=== PATIENT | female | born 1940 | race Caucasian/White ===

== ENCOUNTER → 2019-07-19 10:57 | Outpatient (CLI) | payer MEDICARE, SELFPAY ==
[2019-07-20 15:19] LABS: COVID19 Sendout NOT DETECTED (Not Detect)
== END ==
PROVIDERS: Visit Provider Registered Nurse
DX: Z01.812 Encounter for preprocedural laboratory examination (principal)
CPT/HCPCS: 87635

== ENCOUNTER 2019-07-22 09:53 | Observation (INO) | payer MEDICARE, SELFPAY ==
[2019-07-18 09:16] VITALS: BMI 28.0
[2019-07-21] VITALS (17 sets, daily range): BP systolic 110–148; BP diastolic 47–90; PULSE 52–70; RESP 10–30; TEMP 36–36.6; O2SAT 96–100; BMI 25.8
--- NOTE | 2019-07-21 06:00 | DI.RAD.S_ITS ---
PROCEDURE: XR PELVIS 1-2V INDICATIONS: post op Right JEREMÍAS TECHNIQUE: 1 view of the lower pelvis acquired. COMPARISON: None. FINDINGS: Bones: Patient is status post right hip arthroplasty, with hardware components in expected positions. The hip joint appears congruent. The visualized bony structures appear intact. Soft tissues: Overlying postoperative changes are noted. No suspicious soft tissue densities. IMPRESSION: Normal alignment after right total hip arthroplasty. Dictated by: Cody Booker M.D. on 07/21/2019 at 10:12 Approved by: Cody Booker M.D. on 07/21/2019 at 10:12
[2019-07-21] MEDS: LACTATED RINGERS 1,000 ML 42 ML IV (07:04)
[2019-07-21] MEDS: CELECOXIB 200 MG CAPSULE PO (07:04)
[2019-07-21] MEDS: PREGABALIN 75 MG CAPSULE PO (07:05)
[2019-07-21] MEDS: ACETAMINOPHEN 325 MG TABLET 975 MG PO (07:05)
[2019-07-21] MEDS: CEFAZOLIN 1 GM/50 ML FROZ.PIGGY IV (07:40)
--- NOTE | 2019-07-21 07:45 | PM.PREOP ---
Pre-operative Note COVID-19 COVID-19 status: Negative Result date/Date tested (Pos, Neg/Pending): 07/19/19 Interval Note History & Physical reviewed/Exam performed by Physician: Yes Changes to H&P: No
[2019-07-21] MEDS: TRANEXAMIC ACID 1,000 MG VIAL 2000 MG INJ ×2 (08:10→08:55)
--- NOTE | 2019-07-21 08:25 | SUR.OPER ---
Lateral on padded OR bed. Gel axillary roll. Arms secured on padded armboard with pillow supporting top arm. Padded hip positioner braces x4 - anterior and posterior chest and pelvis. Additional gel pad used anterior pelvis. Gel pad under bottom leg from knee to foot and secured with tape over sheet.
[2019-07-21] MEDS: KETOROLAC 30 MG/ML VIAL IV (08:30)
[2019-07-21] MEDS: MORPHINE 4 MG/ML INJ INJ (08:30)
[2019-07-21] MEDS: ROPIVACAINE 0.5% PF 5 MG/ML 20ML VIAL 60 ML INJ (08:30)
--- NOTE | 2019-07-21 09:31 | P.OP_ITS ---
Operative Date/Time/Diagnoses Date of procedure: 07/21/19 Time of procedure: 09:31 Pre-op diagnosis: Right hip degenerative joint disease Post-op diagnosis: same Procedure & Clinicians Procedure: Right total hip arthroplasty (CPT code 11951 with dental assistant instructor) Same procedure as scheduled: Yes Indications: Patient is an 79-year-old female with severe right hip DJD. The patient has pain with activities and at rest, limited ambulation and activity tolerance, difficulties with ADLs, and failure of conservative treatment. We have discussed the nature of condition, treatment options, risks and benefits, and patient elects to proceed with total hip arthroplasty and gives informed consent. Surgeon: Дмитрий Hsu Undercollar Baster: Lucia Wen Anesthesia Type: General and Spinal Operative Notes Closure Type: primary Specimen(s): none sent Prosthetic devices, grafts, tissues, transplants, or devices: Acetabulum: Cueva and Nephew R3 acetabular component size 54 mm Femoral component: Cueva [employer] Nephew Anthology stem size 7 with standard offset Femoral head: 36 mm + 0 cobalt chrome Estimated Blood Loss (mL): 100 Blood products transfused: none Procedure in detail: After satisfaction induction of anesthetic, and administration of IV antibiotics, the patient was positioned in the lateral decubitus position with all bony prominences well padded and pelvic position secured using a hip inspector integrated circuits positioning device. Right hip and lower extremity prepped and draped in the usual sterile fashion, 1st dose of intravenous tranexamic acid was administered, then a longitudinal incision was created centered over the greater trochanter and carried sharply through the skin and subcutaneous tissues down to the fascia hussein which was divided longitudinally and retracted with a Charnley retractor. External rotators visualize, cut, tagged, and retracted posteriorly, then the capsule was cut in a T-type fashion with the corners tagged and retracted. Hip was dislocated and femoral neck cut made according to preoperative templating. Acetabular retractors then placed, and the acetabular labrum and osteophytes were excised. The acetabulum was then sequentially reamed to 53 mm with an excellent circumferential ream and fit with the trial. The trial component was removed and a permanent size 54 mm Cueva and Nephew R3 acetabular component was selected, positioned, and impacted with satisfactory position and fixation achieved. Permanent liner was then inserted with the elevated lip directed posteriorly. Soft tissue then removed off the lateral femoral neck in the lateral neck was entered using a box osteotome. T- handled reamers placed down the canal followed by sequential broaching to 7 with the final broach left in place for trial reduction which demonstrated excellent leg length, range of motion, and stability characteristics with a 36 mm +0 trial ball. The trial and broach were removed, and a permanent size 7 Cueva and Nephew Anthology stem was selected and inserted with excellent position and fixation achieved. Another trial reduction yielded the above characteristics so the trial ball was exchanged for a permanent 36 mm +0 cobalt chrome ball. The hip was irrigated and reduced and excellent leg length range of motion and stability characteristics were achieved and maintained. Periarticular tissues were infiltrated with ropivacaine, morphine, and Toradol. The hip was copiously irrigated, and the capsule repaired with #2 Ethibond, and the piriformis was repaired back to the greater trochanter with the same. Fascia hussein closed with interrupted #1 Ethibond sutures, and the subcutaneous tissues were closed in 2 layers of 0 Vicryl and 2 0 Vicryl. Skin was closed with elisa and sterile dressings applied. Second dose of tranexamic acid was administered intravenously, and the anesthetic was terminated. Complications: none Post-operative Condition: stable Disposition: PACU Plan for aftercare: Patient will be admitted to the acute care early, and anticipate discharge on postop day 1 with follow-up in office in 10-14 days. Outpatient physical therapy will be arranged and patient will continue to observe posterior hip precautions. Patient will continue use of postoperative Lovenox for 10 days postop.
--- NOTE | 2019-07-21 10:05 | SUR.PHASEI ---
Patient denies nausea/pain. Spinal at umbilicus. Tolerating po.
[2019-07-21] MEDS: LACTATED RINGERS 1,000 ML 125 ML IV (11:28)
--- NOTE | 2019-07-21 12:39 | PC.NURSE ---
Checked on patient after approx 12:15, she is sitting upright in bed starting to eat her lunch. She reports that just after 12 noon she started having sudden flashing in her right eye like little lights in a [place] which now continues. Upon evaluation she has no other neurological symptoms. BG 127. Reported findings immediately to Dr. Hsu (in surgery) and whether to activate stroke protocol. He states not needed at this time, likely retinal, but requests hospitalist consult. Dr. Rodriguez notified and updated. Will continue to monitor closely.
--- NOTE | 2019-07-21 13:10 | CM.DANOTE ---
Addendum entered by Barb iL LPN 07/21/19 13:27: Consultation: currently in process by hospitalist Dr. Rodriguez. COSME Franklin reports pt having circular flashing in R eye: labs and a CT are in process. Original Note: Discharge Planning/Care Management DCP: assessment: case received, EMR reviewed and went to room now to check in with pt. She had just arrived from PACU and said she was feeling very comfortable with the warmed blanket. Introduced self and role. PT was admitted early this morning for a scheduled R JEREMÍAS/posterior approach. Surgeon: Dr. Hsu Payer: Medicare and AARP Admission status: SDC: confirmed by UR RN Alla PT will be seeing pt later today. Pt confirms that she does plan to d/c to home when ok'd by the surgical team. Her Chapin will be helping her at home as she recovers. OUTPT PT is planned, per Dr. Hsu. P: check in again tomorrow after pt has worked with therapy and follow prn for any needs around d/c that may arise. (conversation today was quite brief as pt has so recently come out of surgery) CM Discharge Assessment Start: 07/21/19 13:09 Freq: Status: Active Protocol: Document 07/21/19 13:09 ITV (Rec: 07/21/19 13:10 ITV [id number]) Discharge Planning Assessment Advance Directives? Yes Advance Directives on File No History Provided By Patient,Medical Record Prior Living Arrangements Apartment/Condo Household Members spouse Is patient alert and oriented? Yes Discharge Plan Home Whiteboard Updated in Patient Room with Yes name and ext. # of Field Operations Manager Pre-Anesthesia Assessment Start: 07/18/19 09:16 Freq: Status: Active Protocol: Document 07/18/19 09:16 CAB (Rec: 07/18/19 09:41 CAB [id number]) Pre-Anesthesia Assessment PAC Comment COVID virus infection 05/06/19, did not require hospitalization Patient Information Reviewed Via Chart Review,Phone Assessment Assessment Completed With Patient Comment COVID testing scheduled for 07/19/19-No other labs/EKG identified Primary Care Provider Robert Antony Seen Specialist in Last 12 Months Yes Specialist Seen Orthopedist Primary Language South African Inspector Finishing Required No Height 169.55 cm Weight 80.739 kg Body Mass Index (BMI) 28.0 Hearing Ability Normal Visual Impairment No Limitations Visual Assist None Dentition Type Teeth, Natural Present Barriers to Learning None Other Aids No Hx Anesthesia Reactions No: It takes a little more to put me out Hx Family Anesthesia Reaction No Hx Malignant Hyperthermia No Hx Blood Transfusions No Anesthesia Review Requested No alcohol intake current alcohol intake frequency a few times a month Smoking Status Never smoker Substance Use Type does not use Pain Present Pain Reported Musculoskeletal Symptoms Abnormal Gait,Difficulty Walking,Joint Pain,Neck Pain, Numbness History of Falling (Recent or History of Yes ) Patient is completely paralyzed or No completely immobile Prosthesis or Orthotic Device Cane Mental Status Oriented to own ability Is patient on oxygen? No Does patient have CANTU/SOB No Hx Sleep Apnea No Currently Taking a Beta Sarmad Yes: Metoprolol Can You Climb a Flight of Stairs Without Yes SOB Hx Chest Pain No Hx SOB No Hx Syncope or Dizziness Yes: Occasional dizziness with sudden positional changes Anti-Coagulant Therapy No Has a Patient Financial Counselor No Cardiac Testing No Hx Pacemaker/ICD No Pacemaker Rep Required? No Cardiac Clearance Received Not Applicable Diet Type At Home Regular,Diabetic dysphagia No Gastrointestinal Symptoms Constipation Comment Hx Longo's esophagus Urinary Catheter Present No Hx Urinary Self Catheterization No Diabetes Yes: No medication, checks blood sugars once a month HgbA1C 5.9 Date 03/17/19 Comment A1c report per pt Patient No Lactating No Hx Drug Resistant Organism No Presence of External or Internal Medical Yes: Bilateral eye lens Devices Have you had any close contact with Yes: Pt had COVID-19 05/06/19 someone diagnosed with COVID-19? Are you experiencing any of these No symptoms symptoms? Evaluation/Screening for possible COVID- Yes 19 infection completed? Comment Pt did not require hospitalization, also had COVID-19 Marital Status Lives With spouse Prior Living Arrangements Apartment/Condo Number of Floors (Floors) One Floor Support System Spouse Does the Patient Have Assistance After Yes Surgery Patient Discharge Plan Description Return Home Feels Safe in Current Environment Yes Been Physically Hurt or Threatened By a No Person in Current Environment Do you have thoughts of harming yourself None or others? Are you currently considering suicide? No Do you have a plan to hurt yourself or No Plan others? Do You Have Any Spiritual Beliefs That No May Affect Your HC Choices? Do You Have Any Cultural Practices That No May Affect Your HC Choices? Comment Hindu Who Can We Speak to About Patient's Care Family, friends Identifying Code for Release of Patient Declines to issue Information Health Care Proxy/Next of Kin Chapin () Health Care Proxy Emergency Contact Name Homero (son), Arben (son) Emergency Contact Phone Number Homero: [phone] Advance Directives? Yes Advance Directives on File No Power of Plant Nursery Worker Yes Power of Plant Nursery Worker Name Chapin () Power of Plant Nursery Worker PAC Instructions Durable medical equipment, Medications to take/avoid, Nasal antibiotic,No ETOH/ petroleum product on skin DOS, NPO,Post-op transportation, Sturdy shoes/comfortable clothes,Do not bring valuables and remove jewelry
--- NOTE | 2019-07-21 13:15 | PC.NURSE ---
Per Dr. Rodriguez patient to have STAT labs drawn and then can go to CT after resulted.
[2019-07-21 13:37] LABS: BUN Creatinine Ratio 30.3 (6-22); Blood Urea Nitrogen 23 mg/dL (7-17); Carbon Dioxide 28 mmol/L (22-32); Chloride 101 mmol/L (98-107); Estimated Glomerular Filt Rate > 60.0 mL/min (>60); Glucose 184 mg/dL (80-110); HEMOLYSIS < 15 (0-50); Potassium 4.1 mmol/L (3.4-5.1); Sodium 138 mmol/L (137-145)
--- NOTE | 2019-07-21 13:38 | DI.CT.S_ITS ---
PROCEDURE: CT ANGIO HEAD INDICATIONS: confussion post op hip surgery with right eye vision problems TECHNIQUE: Precontrast 4.5 mm thick angled axial sections acquired from the foramen magnum to the vertex. After the administration of intravenous contrast, 1 mm thick sections acquired through the [place] of [place]. Postcontrast 4.5 mm thick sections then re-acquired from the foramen magnum to the vertex. 10 mm thick oivqkzs-ldxwjwotu-yfitblocvd (MIP) reformats were acquired of the central intracranial vasculature. For radiation dose reduction, the following was used: automated exposure control, adjustment of mA and/or kV according to patient size. COMPARISON: None. FINDINGS: Image quality: Excellent. Anterior circulation: Intracranial internal carotid arteries are normal in size and flow. The flow within the paired anterior cerebral arteries is normal and symmetric. The flow within the middle cerebral arteries is normal and symmetric. The anterior communicating artery is seen. No aneurysms are seen. Posterior circulation: Visualized portions of the vertebral arteries demonstrate normal caliber, and join to form a normal appearing basilar artery. Flow within the posterior cerebral arteries is normal and symmetric. No aneurysms are seen. CSF spaces: Ventricles are normal in size and shape. Basal cisterns are patent. No extra-axial fluid collections. Brain: No midline shift. No intracranial bleeds or masses. Ritter-white matter interface appears intact. Skull and face: Calvarium and facial bones appear intact, without suspicious lesions. Sinuses: Visualized sinuses and mastoids are clear. IMPRESSION: Normal for age, source of current symptoms is not seen. Dictated by: Cody Booker M.D. on 07/21/2019 at 14:43 Approved by: Cody Booker M.D. on 07/21/2019 at 14:45
[2019-07-21] MEDS: ACETAMINOPHEN 325 MG TABLET 650 MG PO ×2 (14:45→21:15)
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
--- NOTE | 2019-07-21 15:06 | DI.MRI.S_ITS ---
PROCEDURE: MR HEAD/BRAIN WO CON INDICATIONS: post op confusion after hip surgery, right eye vision problems TECHNIQUE: Noncontrast axial T1 spin echo, axial T2 fast spin echo, sagittal and axial FLAIR, coronal T2 fast spin echo, axial gradient echo, axial diffusion and ADC through the brain. COMPARISON: None. FINDINGS: Image quality: Excellent. CSF Spaces: Basal cisterns are patent. No extra-axial fluid collections. Ventricles are normal in size and shape. Brain: No intracranial masses or hemorrhage. Ritter/white matter interface is normal. Brainstem appears normal. Diffusion-weighted images demonstrate no acute ischemic insult. No chronic ischemic insults. Normal intravascular flow voids are present. Skull and face: Calvarium has normal marrow signal. Orbits appear normal. Sinuses: Sinuses and mastoids are clear except for mild chronic appearing mucosal thickening without air-fluid level at the right maxillary sinus. IMPRESSION: Source of confusion and reported right eye vision alteration is not seen. No stroke or mass is found, no intracranial hemorrhage is identified. No orbital abnormalities seen. Incidental note is made of a slight degree of mucosal thickening at the right maxillary sinus without air-fluid level indicating minimal chronic sinusitis in that area from the past. Dictated by: Cody Booker M.D. on 07/21/2019 at 17:04 Approved by: Cody Booker M.D. on 07/21/2019 at 17:05
--- NOTE | 2019-07-21 17:04 | PM.CN ---
History of Present Illness Consult details Date Patient Seen: 07/21/19 Chief complaint: [id number] Reason for consult: Visual changes Narrative: The patient is a 79-year-old female who is status post right ORIF who I am asked to see for abrupt onset of flashing lights out of the right visual field. The patient has a history of type 2 diabetes, hypertension, hyperlipidemia, hypothyroidism, osteoarthritis who reports having a history of a detached left retina. Her symptoms during that episode was different from this occasion. She was sitting in in bed when she noted around noon flashing lights out of the right visual field. She noted that the mid visual field did not have the flashing lights. She had no loss of vision. It no slurred speech. She had no facial droop. She reports some tingling and weakness in her lower extremities which she relates to her recent surgery. Patient has no prior history of stroke. I was asked by Dr. Hsu to consult on this patient for further evaluation. Meds Home Medications and Allergies Home Medications Medication Instructions Recorded Confirmed Type duloxetine 60 mg PO DAILY 04/27/19 07/21/19 History levothyroxine 88 mcg PO DAILY 04/27/19 07/21/19 History metoprolol succinate 50 mg PO BID 04/27/19 07/21/19 History pantoprazole 40 mg PO DAILY 04/27/19 07/21/19 History simvastatin 40 mg PO BEDTIME 04/27/19 07/21/19 History triamterene-hydrochlorothiazid 1 tab PO QAM 04/27/19 07/21/19 History zolpidem 5 mg PO BEDTIME PRN 04/27/19 07/21/19 History Allergies Allergy/AdvReac Type Severity Reaction Status Date / Time lisinopril AdvReac Intermediate Cough Verified 07/21/19 06:47 Review of Systems Review of Systems ROS: Yes All systems reviewed with the patient and are negative except as otherwise documented Exam Vital Signs (past 8 hours): - 07/21/19 09:18 07/21/19 09:23 07/21/19 09:28 Temperature 97.9 F Pulse Rate 56 L 55 L 56 L Respiratory Rate 30 H 10 L 11 L Blood Pressure 116/52 L 116/57 L 117/56 L Pulse Oximetry 100 100 99 07/21/19 09:33 07/21/19 09:48 07/21/19 10:03 Temperature 97.3 F L 97.5 F L Pulse Rate 55 L 54 L 52 L Respiratory Rate 15 13 12 Blood Pressure 125/57 L 111/50 L 118/47 L Pulse Oximetry 99 99 100 07/21/19 10:30 07/21/19 11:00 07/21/19 11:22 Temperature 96.8 F L 97.3 F L Pulse Rate 54 L 56 L Respiratory Rate 14 14 Blood Pressure 120/57 L 133/66 Pulse Oximetry 100 99 100 07/21/19 11:30 07/21/19 12:30 07/21/19 13:31 Temperature 97.2 F L 97.3 F L 97.8 F Pulse Rate 53 L 63 63 Respiratory Rate 14 16 16 Blood Pressure 122/90 140/73 125/53 L Pulse Oximetry 98 99 98 07/21/19 15:43 Temperature 96.9 F L Pulse Rate 60 Respiratory Rate 18 Blood Pressure 144/69 H Pulse Oximetry 96 Oxygen Delivery Method Room Air Oxygen Flow Rate 0 Narrative Exam Narrative: Pleasant female resting comfortably in no obvious distress HEENT: Normocephalic atraumatic, extraocular muscles are intact, visual gibbs are intact to confrontation. No facial asymmetry, speech is fluent, Lungs: Clear to auscultation Cardiac exam: Regular rate and rhythm normal S1-S2 with a 2/6 systolic ejection murmur Abdomen: Soft nontender nondistended Extremities: Right leg with dressing in place left leg no edema Neuro exam: Cranial nerves 2-12 are intact, strength is symmetric and equal in the upper extremities, she is unable to lift the right lower extremity but able to lift the left lower extremity, sensation grossly intact NIH score of 0 Objective Labs Result Diagrams: 07/21/19 13:14 Labs: Laboratory Results - last 24 hr 07/21/19 13:14 Sodium 138 Potassium 4.1 Chloride 101 Carbon Dioxide 28 BUN 23 H Creatinine 0.76 Estimated GFR > 60.0 BUN/Creatinine Ratio 30.3 H Glucose 184 H Calcium 10.0 Assessment & Plan Assessment & Plan narrative: Impression 1. 79-year-old female status post ORIF who developed abrupt onset of visual changes in the right visual field -NIH SS stroke score is 0 -CT angio is negative -head MRI pending -visual changes resolved after to our -suspect this may reflect ophthalmologic condition versus a neuro condition. -patient to follow-up with her director of rehabilitation and wellness as an outpatient 2. Status post ORIF -postsurgical management per Ortho 3. Hypertension -continue metoprolol 4. Hyperlipidemia -continue statin 5. Hypothyroid -continue L-thyroxine Will follow-up head MRI to rule out acute ischemic change. If MRI is negative would recommend outpatient ophthalmological evaluation. Thank you very much for this consultation
[2019-07-21] MEDS: CEFAZOLIN 2 GM/100 ML FROZ.PIGGY IV ×2 (17:29→23:25)
[2019-07-21] MEDS: LORazepam 2 MG/ML INJ 1 MG IV (17:30)
[2019-07-21] MEDS: hydrOXYzine pamoate 25 MG CAPSULE PO (21:14)
[2019-07-21] MEDS: METOPROLOL ER 50 MG TABLET PO (21:14)
[2019-07-21] MEDS: DOCUSATE 100 MG CAPSULE PO (21:14)
[2019-07-21] MEDS: SIMVASTATIN 40 MG TABLET PO (21:14)
[2019-07-21] MEDS: ASPIRIN EC 81 MG TABLET PO (21:15)
[2019-07-21] MEDS: diphenhydrAMINE 50 MG/ML VIAL 25 MG IV (23:19)
[2019-07-21] MEDS: ZOLPIDEM 5 MG TABLET PO (23:25)
--- NOTE | 2019-07-22 00:07 | PC.NURSE ---
Addendum entered by Mandi Hawk R.N. 07/22/19 05:39: States she slept well. Denies pain except for a few twinges. States she has some numbness around right knee area but is now able to lift leg further off bed. Declines repositioning but demonstrates ability to shift buttocks in the bed. Original Note: Patient is alert and oriented. Breath sounds CTA with RA sat of 98%. HRR. Denies nausea. BT hypoactive but states she passed some flatus earlier. Voiding without dysuria, frequency or urgency. Needing assist to reposition in bed. Did not do well with transfers out of bed on previous shift so will use bedpan during the night. Bulky dressing to right lateral hip is CDI. CMS is intact bilaterally but is unable to lift right leg off bed more than a couple inches. Wearing bilateral calf SCD's. States pain is 2/10 and achy but tolerable and declines offer of pain medication. Was complaining of itching at shift change and was medicated with Benadryl with resolution of symptoms. Requested/medicated with Ambien for sleep. Fall risk score is moderate; bed alarm is activated.
[2019-07-22 03:01] VITALS: BP 102/49; PULSE 61; RESP 16; TEMP 36.4; O2SAT 95
[2019-07-22] MEDS: PANTOPRAZOLE 40 MG TABLET PO (05:35)
[2019-07-22 06:22] LABS: Hematocrit 29.3 % (36-46); Hemoglobin 10.1 g/dL (12.0-16.0)
[2019-07-22 07:45] VITALS: BP 89/43
[2019-07-22 07:47] VITALS: BP 100/48; PULSE 57; RESP 14; TEMP 36.4; O2SAT 96
--- NOTE | 2019-07-22 07:49 | P.PN_ITS ---
Subjective Subjective Date Patient Seen: 07/22/19 Time Patient Seen: 10:57 Interval history: She is seen today to follow up her hypertension, hyperlipidemia, hypothyroidism and postop vision symptoms with possible TIA. The brain MRI is read as: IMPRESSION: Source of confusion and reported right eye vision alteration is not seen. No stroke or mass is found, no intracranial hemorrhage is identified. No orbital abnormalities seen. Incidental note is made of a slight degree of mucosal thickening at the right maxillary sinus without air-fluid level indicating minimal chronic sinusitis in that area from the past. Her symptoms have resolved and she is discharging today per Dr. Hsu. She has plans to follow this up with her retinal specialist soon. Her glucose was 184 yesterday and is 107 this morning. She has a history of diet-controlled diabetes with no recent A1c's available. The hemoglobin is 10.1. She is afebrile and vital signs are stable. Exam Vital Signs (past 8 hours): - 07/22/19 03:01 Temperature 97.5 F L Pulse Rate 61 Respiratory Rate 16 Blood Pressure 102/49 L Pulse Oximetry 95 Oxygen Delivery Method Room Air Oxygen Flow Rate 0 Narrative Exam Narrative: She is alert and oriented x3, in no apparent distress. Pupils are equally round reactive to light and accommodation. Extraocular muscles are intact. No obvious visual symptoms are provoked. Cataract lens replacements are visible. No funduscopic exam was done. Heart is regular rate and rhythm without murmur. Lungs are clear to auscultation bilaterally. Extremities have no ankle edema. Objective Labs Result Diagrams: 07/22/19 05:30 07/21/19 13:14 Labs: Laboratory Results - last 24 hr 07/21/19 07/22/19 13:14 05:30 Hgb 10.1 L Hct 29.3 L Sodium 138 Potassium 4.1 Chloride 101 Carbon Dioxide 28 BUN 23 H Creatinine 0.76 Estimated GFR > 60.0 BUN/Creatinine Ratio 30.3 H Glucose 184 H Calcium 10.0 Assessment & Plan Assessment & Plan narrative: 1. 79-year-old female POD #1 hip ORIF who developed abrupt onset of visual changes in the right visual field -NIH SS stroke score is 0 -CT angio is negative -head MRI is negative -visual changes resolved after two hours -Unclear etiology. -patient to follow-up with her retinal specialist [employer] as an outpatient -may need carotid scan 2. Status post ORIF -discharge home today per Ortho 3. Hypertension -continue metoprolol 4. Hyperlipidemia -continue statin 5. Hypothyroid -continue L-thyroxine 6. Diabetes Mellitus Type 2 -A1C ordered, continue dietary control at home and followup with her PCP
[2019-07-22 08:08] LABS: Hemoglobin A1C% w Est Avg Glu 5.4 % (4.0-6.0)
[2019-07-22] MEDS: DULOXETINE 30 MG CAPSULE 60 MG PO (08:20)
[2019-07-22] MEDS: ASPIRIN EC 81 MG TABLET PO (08:20)
[2019-07-22] MEDS: HYDROCODONE/ACET 5/325 TABLET 1 TAB PO ×2 (08:21→13:57)
[2019-07-22] MEDS: DOCUSATE 100 MG CAPSULE PO (08:21)
[2019-07-22] MEDS: ACETAMINOPHEN 325 MG TABLET 650 MG PO (08:21)
[2019-07-22] MEDS: METOPROLOL ER 50 MG TABLET PO (08:21)
[2019-07-22] MEDS: LEVOTHYROXINE 88 MCG TABLET PO (08:22)
[2019-07-22] MEDS: SODIUM CHLORIDE 0.9% FLUSH 10 ML IV (08:53)
[2019-07-22 08:59] VITALS: PULSE 60; RESP 16; O2SAT 98
[2019-07-22] MEDS: TRIAMTERENE/HCTZ 37.5/25 TABLET 1 CAP PO (09:27)
--- NOTE | 2019-07-22 09:28 | CM.DPC ---
Addendum entered by Barb Li LPN 07/22/19 15:39: Pt and her worked extensively with PT Velvet and OT Doreen this afternoon and have been ok'd now for d/c. Both noted the limitations in memory with both pt and her but they were able to work within this and used some written materials to help cue and prompt the couple. There assistance is this d/c plan is very much appreciated. Pt and her have now left for home. Addendum entered by Barb Li LPN 07/22/19 10:43: Case discussed in Team Rounds with Dr. Villalta, on today for the hospitalist team. He stated that pt was medically stable for the d/c and would defer to Dr. Hsu for further orders. Spoke with PT Velvet before rounds and then again just now. She reported that she did expect pt to do much better today than yesterday but does note some memory difficulties and requests OT order/obtained now. Dr. Hsu has just come in and a d/c to home order is now in place. PT and OT will see pt today and include pt's spouse in caregiver training (expected to be at 1300). Velvet noted pt was having some difficulties remembering the hip precautions. RE admission status: some confusion here as is listed on the census board as INPT but review by [facility] RN team has confirmed initial order of SDC, which then changed to OBS. Did update PT Velvet re this as the focus at this time needs to be a safe d/c to home setting. Perhaps HH would be helpful. Will follow up. Original Note: DCP: continued: EMR reviewed. Noted Dr. Rodriguez's consult note of last evening and recommendation for pt to have an outpt ophthalmological evaluation. MRI was negative.
--- NOTE | 2019-07-22 09:49 | PT.IPTN ---
Current Diagnoses Unilateral primary osteoarthritis, right hip (07/21/19) Trochanteric bursitis, right hip (07/21/19) Surgery Performed Operation Date: 07/21/19 07:45 Actual Procedures p Total Hip Arthroplasty(Right) - Дмитрий Hsu MD Physical Therapy Treatment Note M2 PT-IP Current Condition Start: 07/21/19 17:20 Freq: NEEDED Status: Active Protocol: Document 07/21/19 14:45 AB (Rec: 07/21/19 17:33 AB [id number]) Physical Therapy Current Condition Current Condition Evaluation Date 07/21/19 Treatment Diagnosis s/p R [id number] posterior approach; difficulty in walking Onset Date 07/21/19 Precautions Posterior Hip Precautions No Hip Flexion > 90 degrees,No Hip Internal Rotation,No Hip Adduction Weight Bearing Status Weight Bearing Status Weight Bear as Tolerated Allowed Weight Bearing Amount (enter % RLE WBAT or #) (%) M3 PT-IP Subjective Start: 07/21/19 17:20 Freq: NEEDED Status: Active Protocol: Document 07/22/19 09:49 AB (Rec: 07/22/19 12:44 AB [id number]) Subjective Physical Therapy Visit Type Type Treatment Note Visit Start Time 09:19 Visit Stop Time 10:24 Total Visit Minutes 35 Number of MACHINE ROOM OPERATOR Visits 0 Physical Therapy Visit Comments Patient Comments pt is agreeable to do PT Therapy Pain Assessment Pain When Pain Assessed At Rest Pain Present Pain Present Pain Reported Location right hip Intensity 2 Scale Used Numeric (1 - 10) Pain Management Techniques Re-positioning,Timing of Activity with Medications M4 PT-IP Mobility and Gait Start: 07/21/19 17:20 Freq: NEEDED Status: Active Protocol: Document 07/22/19 09:49 AB (Rec: 07/22/19 12:44 AB [id number]) PT-Bed Mobility Assessment Supine to Sit Supine to Sit Standby Assistance Scooting Scooting to Edge of Bed Standby Assistance PT-Transfer Assessment Sit to and From Stand Sit to and from Stand Minimal Assistance,Use of Upper Extremities Equipment Transfer Assistive Device Gait Belt,Front Wheeled Walker Orthotic/Prosthetic Devices or Brace: No Transfers Transfer Destination Bed Transfer Technique Stand Step Pivot Transfer Ability Level of Assist Minimal Assistance,1 Person Assistance,Use of Upper Extremities Comments Mobility Comments completed supine to sit SBA with max cues for techniques. pt required one step instructions for all tasks and requires increase time to process instructions. completed sit to stand min A and cues and completed step transfer to chair using FWW min A and cues. pt ambulated in room using FWW ~ 30 ft min A and cues. informed pt regarding need for caregiver training for safe d/c vs SNF rehab. pt understood and stated that her spouse will be coming in at 1pm and can do caregiver training. Left pt seated on chair. call light and table placed within reach. Gait Assessment Gait Gait Assistance Required: Minimum Assistance,1 Person Assist Distance (Feet) 30 Able to Maintain Weight Bearing Status Yes During Gait Assistive Devices Assistive Device Gait Belt,Front Wheeled Walker Orthotic/Prosthetic Devices or Brace: No Gait Deviations General Gait Pattern Antalgic,Decreased Stride Length,Decreased Feet Clearance,Step-to Gait Factors Limiting Gait Function Factors Limiting Gait Function Decreased Activity Tolerance, Decreased Strength,Difficulty Following Directions,Limited Range of Motion,Pain,Poor Balance,Poor Safety Awareness M5 PT-IP Objective Assessments Start: 07/21/19 17:20 Freq: NEEDED Status: Active Protocol: Document 07/21/19 14:45 AB (Rec: 07/21/19 17:33 AB [id number]) Orientation Orientation/Cognition Level of Alertness Alert Orientation Name Safety Awareness Decreased Safety Awareness Memory Description Short Term Impaired Comments has difficulty following directions Gross Range of Motion Lower Extremity ROM Assessment Within Functional Limits Strength Lower Extremity Strength Assessment Within Functional Limits Sensation Assessment Comments Sensation Comments stated that she does not have full sensation back on her legs Muscle Tone Muscle Tone WNL Yes M6 PT-IP Treatment Start: 07/21/19 17:20 Freq: NEEDED Status: Active Protocol: Document 07/22/19 09:49 AB (Rec: 07/22/19 12:44 AB [id number]) Physical Therapy Treatment Education Education Provided Precautions,Weight Bearing Status,Safety Other Treatments Other Treatment Performed reviewed hip precautions with pt and pt requires cues to recall M7 PT-IP Assessment and Plan Start: 07/21/19 17:20 Freq: NEEDED Status: Active Protocol: Document 07/22/19 09:49 AB (Rec: 07/22/19 12:44 AB [id number]) PT Summary Assessment and Plan Potential Rehabilitation Potential Good Summary Impairments Pain,ROM,Strength,Balance, Coordination,Sensation,Tone, Cognition,Bed Mobility, Transfers,Gait,Activity Tolerance Progress Towards Goals Slow Progress - Other Assessment Summary pt requiring min A with mobility but max cues with all tasks and requires increase time to process instructions. caregiver training will be conducted later today. d/c plan depending if spouse will be able to assist pt safety. will continue to assess. Goals Bed Mobility Goal Independent Transfer Goal Independent,Front Wheeled Walker Gait Goal Independent,Front Wheel Walker Gait Distance 200 Days to Meet Goals 5 Frequency of Treatment Frequency Of Treatment Twice a Day Treatment Plan Physical Therapy Treatment Plan Bed Mobility Training,Transfer Training,Gait Training, Therapeutic Exercise,Balance Retraining,Post Op Education, Discharge Planning,Hot or Cold Pack,Neuromuscular Re-ed, Coordination Retraining,Manual Therapy Recommendations To Nursing Amount of Assist Needed 1 Person Assist Discharge Recommendations PT Discharge Recommendations Home with Assistance,SNF Rehab ,Outpatient PT Other Discharge Recommendations depending on progress: SNF vs home with assist and outpt PT Transportation Needs at Discharge Private Vehicle,Wheelchair/ Cabulance
[2019-07-22 10:43] VITALS: BP 98/51; PULSE 63
[2019-07-22 11:01] VITALS: BP 98/45; PULSE 63; RESP 13; TEMP 36.8; O2SAT 98
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
--- NOTE | 2019-07-22 14:33 | PC.NURSE ---
Received DC order from MD today after PT/OT evaluation. Pt's present for caregiver training. Bryanna given prior DC per pt's request. DC instructions and packet given to the patient and spouse. Rx provided to the pt and advised to take to their preferred pharmacy. They verbalized understanding. Pt is d/c'd and escorted via wheelchair and private vehicle with Moshe pt's .
--- NOTE | 2019-07-22 15:38 | PT.IPTN ---
Current Diagnoses Unilateral primary osteoarthritis, right hip (07/22/19) Trochanteric bursitis, right hip (07/22/19) Surgery Performed Operation Date: 07/21/19 07:45 Actual Procedures p Total Hip Arthroplasty(Right) - Дмитрий Hsu MD Physical Therapy Treatment Note M2 PT-IP Current Condition Start: 07/21/19 17:20 Freq: NEEDED Status: Discharge Protocol: Document 07/21/19 14:45 AB (Rec: 07/21/19 17:33 AB [id number]) Physical Therapy Current Condition Current Condition Evaluation Date 07/21/19 Treatment Diagnosis s/p R JEREMÍAS posterior approach; difficulty in walking Onset Date 07/21/19 Precautions Posterior Hip Precautions No Hip Flexion > 90 degrees,No Hip Internal Rotation,No Hip Adduction Weight Bearing Status Weight Bearing Status Weight Bear as Tolerated Allowed Weight Bearing Amount (enter % RLE WBAT or #) (%) M3 PT-IP Subjective Start: 07/21/19 17:20 Freq: NEEDED Status: Discharge Protocol: Document 07/22/19 15:38 AB (Rec: 07/22/19 16:25 AB [id number]) Subjective Physical Therapy Visit Type Type Treatment Note Visit Start Time 13:38 Visit Stop Time 14:17 Total Visit Minutes 39 Number of BODY BUILDER APPRENTICE Visits 0 Physical Therapy Visit Comments Patient Comments spouse present for caregiver training Therapy Pain Assessment Pain When Pain Assessed At Rest Pain Present Pain Present Pain Reported Location right hip Intensity 2 Scale Used Numeric (1 - 10) Pain Management Techniques Modification of Treatment, Timing of Activity with Medications M4 PT-IP Mobility and Gait Start: 07/21/19 17:20 Freq: NEEDED Status: Discharge Protocol: Document 07/22/19 15:38 AB (Rec: 07/22/19 16:25 AB [id number]) PT-Bed Mobility Assessment Supine to Sit Supine to Sit Standby Assistance Sit to Supine Sit to Supine Standby Assistance PT-Transfer Assessment Sit to and From Stand Sit to and from Stand Contact Guard Assistance,1 Person Assistance,Use of Upper Extremities Equipment Transfer Assistive Device Gait Belt,Front Wheeled Walker Orthotic/Prosthetic Devices or Brace: No Transfers Transfer Destination Bed,Chair Transfer Technique ambulated using FWW Transfer Ability Level of Assist Contact Guard Assistance Comments Mobility Comments caregiver training conducted. educated pt's spouse on hip precautions, use of safety belt and how to assist pt. spouse was able to put safety belt on, assisted pt with sit to stand transfers and ambulation using FWW. required instructions to cue pt for safety to maintain hip precautions. Spouse unable to cue pt appropriately and requires further instructions. pt completed supine <>sit x 3 reps and spouse then was able to cue pt on last repetition. completed sit <> stand with cues . pt and spouse continues to require cues from PT. provided pt with step by step written instructions on techniques. spouse read it to pt and pt was able to execute safely. pt requested to stay in bed to rest. positioned pt in bed. call light and table placed within reach. Gait Assessment Gait Gait Assistance Required: Contact Guard Assist Distance (Feet) 20 Able to Maintain Weight Bearing Status Yes During Gait Assistive Devices Assistive Device Gait Belt,Front Wheeled Walker Orthotic/Prosthetic Devices or Brace: No Gait Deviations General Gait Pattern Antalgic,Decreased Stride Length,Decreased Feet Clearance,Step-to Gait Factors Limiting Gait Function Factors Limiting Gait Function Decreased Activity Tolerance, Decreased Strength,Limited Range of Motion,Pain,Poor Balance,Poor Safety Awareness Comments Gait Comments pls refer to mobility section M5 PT-IP Objective Assessments Start: 07/21/19 17:20 Freq: NEEDED Status: Discharge Protocol: Document 07/21/19 14:45 AB (Rec: 07/21/19 17:33 AB [id number]) Orientation Orientation/Cognition Level of Alertness Alert Orientation Name Safety Awareness Decreased Safety Awareness Memory Description Short Term Impaired Comments has difficulty following directions Gross Range of Motion Lower Extremity ROM Assessment Within Functional Limits Strength Lower Extremity Strength Assessment Within Functional Limits Sensation Assessment Comments Sensation Comments stated that she does not have full sensation back on her legs Muscle Tone Muscle Tone WNL Yes M6 PT-IP Treatment Start: 07/21/19 17:20 Freq: NEEDED Status: Discharge Protocol: Document 07/22/19 15:38 AB (Rec: 07/22/19 16:25 AB [id number]) Physical Therapy Treatment Education Education Provided Precautions,Safety M7 PT-IP Assessment and Plan Start: 07/21/19 17:20 Freq: NEEDED Status: Discharge Protocol: Document 07/22/19 15:38 AB (Rec: 07/22/19 16:25 AB [id number]) PT Summary Assessment and Plan Potential Rehabilitation Potential Good Summary Impairments Pain,ROM,Strength,Balance, Coordination,Sensation,Tone, Cognition,Bed Mobility, Transfers,Gait,Activity Tolerance Progress Towards Goals Slow Progress - Other Assessment Summary caregiver training conducted and spouse was able to assist pt but required instructions. provided pt and spouse written step by step instructions and was able to execute mobility and cues using given written instructions. pt plans to go home and spouse to assist pt. Goals Bed Mobility Goal Independent Transfer Goal Independent,Front Wheeled Walker Gait Goal Independent,Front Wheel Walker Gait Distance 200 Days to Meet Goals 5 Frequency of Treatment Frequency Of Treatment Twice a Day Treatment Plan Physical Therapy Treatment Plan Bed Mobility Training,Transfer Training,Gait Training, Therapeutic Exercise,Balance Retraining,Post Op Education, Discharge Planning,Hot or Cold Pack,Neuromuscular Re-ed, Coordination Retraining,Manual Therapy Recommendations To Nursing Amount of Assist Needed 1 Person Assist Discharge Recommendations PT Discharge Recommendations Home with Assistance, Outpatient PT Transportation Needs at Discharge Private Vehicle,Wheelchair/ Cabulance
== END 2019-07-22 14:39 | disposition home or self-care (01) ==
LOC: AC 13:02 → OR 15:36 → AC 15:38 → OR 15:38 → AC 15:38
PROVIDERS: Family Medicine; Internal Medicine; Admitting Provider Orthopaedic Surgery; PCP Internal Medicine; Referring Provider Internal Medicine; Visit Provider Orthopaedic Surgery
PROC: 0SR90JZ Replacement of Right Hip Joint with Synthetic Substitute, Open Approach (ICD-10-PCS; CPT 27130; principal; 2019-07-21 07:45)
DX: M16.11 Unilateral primary osteoarthritis, right hip (principal); M70.61 Trochanteric bursitis, right hip; I10 Essential (primary) hypertension; E78.5 Hyperlipidemia, unspecified; E11.9 Type 2 diabetes mellitus without complications; E03.9 Hypothyroidism, unspecified; H53.9 Unspecified visual disturbance; R41.0 Disorientation, unspecified; Z11.59 Encounter for screening for other viral diseases; Z01.812 Encounter for preprocedural laboratory examination
CPT/HCPCS: 27130; 36415; 70496; 70551; 72170; 80048; 82962; 83036; 85014; 85018; 87635; 94762; 97116; 97162; 97165; 97530; 97535; C1776; G0378; J0690; J1200; J1885; J2060; J2250; J2270; J2274; J2704; J3010; Q9967